=== PATIENT | female | born 1985 | race Two or more races ===

== ENCOUNTER 2022-07-23 13:46 | Emergency (ER) | payer SELFPAY ==
[2022-07-23] MEDS ORDERED: Ketorolac 60 MG/2 ML SDV IM STA (15:29)
[2022-07-23] MEDS ORDERED: Orphenadrine 60 MG/2 ML Inj IM STA (15:29)
== END 2022-07-23 17:28 | disposition home or self-care (01) ==
LOC: MW.ED 13:46 → EDSEX 13:46 → MW.ED 17:28
DX: M48.061 Spinal stenosis, lumbar region without neurogenic claudication (principal)
CPT/HCPCS: 72100; 72170; 96372; 99283; J1885; J2360